=== PATIENT | male | born 1970 | race Hispanic/Latino ===

== ENCOUNTER → 2019-02-14 | Outpatient (CLI) | payer OTHER | END | disposition home or self-care (01) | LOC: OIH 10:29 | PROVIDERS: ATTEND Family Medicine | DX: Z13.6 Encounter for screening for cardiovascular disorders (principal) | CPT/HCPCS: 75571 ==

== ENCOUNTER 2022-11-17 04:20 | Observation (INO) | payer BC, OTHER ==
[~2022-11-17] VITALS: Ht 172.7 cm; Wt 81.6 kg
[2022-11-17 04:52] LABS: BASOPHILS % (AUTO) 0.6 % (0.0-5.0); EOSINOPHILS % (AUTO) 0.4 % (0.0-8.0); HEMATOCRIT 41.9 % (42-54); LYMPHOCYTES % (AUTO) 32.2 % (21.0-51.0); MEAN CORPUSCULAR HEMOGLOBIN 31.5 pg (27.0-33.0); MEAN CORPUSCULAR HGB CONC 33.4 g/dL (32.0-36.0); MEAN CORPUSCULAR VOLUME 94.2 fL (79-99); MONOCYTES % (AUTO) 8.2 % (3.0-13.0); PLATELET COUNT (AUTO) 224 K/uL (130-400); RED BLOOD CELL COUNT(AUTO) 4.45 MIL/uL (4.50-6.20); RED CELL DISTRIBUTION WIDTH 13.3 % (11.0-15.5); WHITE BLOOD COUNT (AUTO) 12.6 K/uL (4.8-10.8)
[2022-11-17] MEDS ORDERED: MORPHINE 4 MG SYG IVP ONE (05:00)
[2022-11-17] MEDS ORDERED: ONDANSETRON 4MG INJ IVP ONE (05:00)
[2022-11-17] MEDS ORDERED: ASPIRIN 81MG CHEW TAB PO ONE (05:00)
[2022-11-17] MEDS ORDERED: NITROGLYCERIN 1GM OINT 1 INCH/1GM TD ONE (05:00)
[2022-11-17 05:03] LABS: CREATININE 0.9 mg/dL (0.5-1.5); POTASSIUM 3.7 mmol/L (3.5-5.1)
[2022-11-17 05:04] LABS: INR 0.93 (0.85-1.15)
[2022-11-17 05:06] LABS: ALBUMIN 4.1 g/dL (3.5-5.0); MAGNESIUM 2.1 mg/dL (1.80-2.40); TOTAL PROTEIN, SERUM 7.1 g/dL (6.0-8.3)
[2022-11-17] MEDS ORDERED: DICYCLOMINE HCL 10 MG/5 ML ML PO ONE (06:00)
[2022-11-17] MEDS ORDERED: LIDOCAINE HCL 2% VISCOUS 15 ML UDCUP PO ONE (06:00)
[2022-11-17] MEDS ORDERED: MAG/ALUM/SIMETH 30 ML UDCUP PO ONE (06:00)
[2022-11-17 09:45] LABS: APPEARANCE,URINE CLEAR (CLEAR); BILIRUBIN,URINE NEGATIVE (NEGATIVE); COLOR,URINE LIGHT-YELLOW (YELLOW); GLUCOSE, URINE (UA) NEGATIVE (NEGATIVE); KETONES,URINE NEGATIVE (NEGATIVE); LEUKOCYTE ESTERASE ,URINE NEGATIVE Leu/uL (NEGATIVE); NITRATE,URINE NEGATIVE (NEGATIVE); OCCULT BLOOD,URINE NEGATIVE (NEGATIVE); PROTEIN,URINE NEGATIVE (NEGATIVE); UROBILINOGEN,URINE 0.2 mg/dL (0.2-1.0)
[2022-11-17] MEDS ORDERED: ACETAMINOPHEN 325 MG TAB PO PRN (14:00)
[2022-11-17] MEDS ORDERED: HYDROXYZINE 10 MG TABLET PO PRN (14:00)
[2022-11-17] MEDS ORDERED: MORPHINE 2 MG SYG IVP PRN (14:00)
[2022-11-17 14:05] LABS: THYROID STIMULATING HORMONE 2.73 uIU/mL (0.36-3.74)
[2022-11-17] MEDS ORDERED: IBUPROFEN 600 MG TABLET PO PRN (14:30)
[2022-11-17 15:02] VITALS: BP 130/74
[2022-11-17 20:30] VITALS: BP 148/85
[2022-11-17] MEDS: FAMOTIDINE 20MG TAB PO SCH (21:00)
[2022-11-17] MEDS ORDERED: ATORVASTATIN 40 MG TABLET PO SCH (21:00)
[2022-11-17] MEDS ORDERED: CLOPIDOGREL 300MG TAB PO ONE ×2 (23:30→23:45)
[2022-11-17 23:39] VITALS: BP 118/80
[2022-11-18 04:22] LABS: BASOPHILS % (AUTO) 0.6 % (0.0-5.0); EOSINOPHILS % (AUTO) 2.5 % (0.0-8.0); LYMPHOCYTES % (AUTO) 39.5 % (21.0-51.0); MEAN CORPUSCULAR HEMOGLOBIN 31.9 pg (27.0-33.0); MEAN CORPUSCULAR HGB CONC 33.8 g/dL (32.0-36.0); MEAN CORPUSCULAR VOLUME 94.6 fL (79-99); MONOCYTES % (AUTO) 9.1 % (3.0-13.0); NEUTROPHILS % (AUTO) 47.6 % (40.0-77.0); PLATELET COUNT (AUTO) 258 K/uL (130-400); RED BLOOD CELL COUNT(AUTO) 4.23 MIL/uL (4.50-6.20); RED CELL DISTRIBUTION WIDTH 13.3 % (11.0-15.5); WHITE BLOOD COUNT (AUTO) 8.5 K/uL (4.8-10.8)
[2022-11-18 04:34] LABS: ALBUMIN 3.4 g/dL (3.5-5.0); CREATININE 0.9 mg/dL (0.5-1.5); MAGNESIUM 2.1 mg/dL (1.80-2.40); PHOSPHORUS 4.8 mg/dL (2.5-4.9); POTASSIUM 4.1 mmol/L (3.5-5.1)
[2022-11-18 04:44] VITALS: BP 150/79
[2022-11-18 08:00] VITALS: BP 128/82
[2022-11-18] MEDS ORDERED: ASPIRIN 81 MG EC TAB PO SCH (09:00)
[2022-11-18] MEDS ORDERED: ENOXAPARIN SODIUM 30 MG/0.3 ML SQ SCH (09:00)
[2022-11-18] MEDS ORDERED: CLOPIDOGREL 75MG TAB PO SCH (09:00)
[2022-11-18] MEDS ORDERED: REGADENOSON 0.4 MG/5 ML PF SYG IVP SCH (09:30)
[2022-11-18 12:00] VITALS: BP 137/94
[2022-11-18] MEDS: FAMOTIDINE 20MG TAB PO SCH (14:32)
[2022-11-18] MEDS ORDERED: PANT40TA PO (16:50)
[2022-11-19] MEDS ORDERED: METOPROLOL TARTRATE 25 MG TAB PO SCH (21:00)
== END 2022-11-18 18:36 | disposition home or self-care (01) ==
LOC: EDH 04:20 → EDHIP 12:48 → 4BH 14:40
PROVIDERS: ADMIT Hospitalist; ATTEND Hospitalist
DX: R07.89 Other chest pain (principal); I10 Essential (primary) hypertension; F41.9 Anxiety disorder, unspecified; E78.5 Hyperlipidemia, unspecified; I20.0 Unstable angina; K59.00 Constipation, unspecified; G47.00 Insomnia, unspecified; Z79.82 Long term (current) use of aspirin; Z79.899 Other long term (current) drug therapy; Z98.890 Other specified postprocedural states
CPT/HCPCS: 96375; 99285; 80050; 82550 ×2; 83735 ×2; 83874 ×2; 84484 ×4; 80061; 83880; 85610; 85730; 81003; 36415 ×2; 71045; 93017; 78452; 96374; 93005 ×2; 96372; 80069; 85025; 93306; 93356; G0378 ×26; J2405; J2270; A9500 ×2; J1650; J2785; 80053; 84443